=== PATIENT | female | born 1955 | race Caucasian/White ===

== ENCOUNTER 2024-04-27 01:07 | Observation (INO) | payer OTHER ==
[~2024-04-27] VITALS: Ht 157.5 cm; Wt 68.0 kg
[2024-04-27 01:45] VITALS: BP_SYST 137; PULSE 63; RESP 18; TEMP 98.7; O2SAT 96
[2024-04-27 03:20] LABS: BASOPHILS # (AUTO) 0.1 K/uL (0.0-0.2); BASOPHILS % (AUTO) 0.9 % (0.0-2.0); EOSINOPHILS # (AUTO) 0.2 K/uL (0.0-0.4); EOSINOPHILS % (AUTO) 1.8 % (0.0-4.0); HEMOGLOBIN 14.6 g/dL (12.0-16.0); LYMPHOCYTES # (AUTO) 2.8 K/uL (1.0-5.5); LYMPHOCYTES % (AUTO) 29.1 % (20.5-51.5); MEAN CORPUSCULAR HEMOGLOBIN 32 pg (27-31); MEAN CORPUSCULAR HGB CONC 34 % (32-36); MEAN CORPUSCULAR VOLUME 93 fL (79.0-98.0); MONOCYTES # (AUTO) 0.5 K/uL (0.0-1.0); MONOCYTES % (AUTO) 5.4 % (1.7-9.3); NEUTROPHILS % (AUTO) 62.8 % (40.0-70.0); PLATELET COUNT (AUTO) 279 K/uL (130-430); RED BLOOD CELL COUNT(AUTO) 4.64 MIL/uL (4.2-6.2); RED CELL DISTRIBUTION WIDTH 13.5 % (9.0-15.0); WHITE BLOOD COUNT (AUTO) 9.6 K/uL (4.8-10.8)
[2024-04-27 03:46] LABS: ALANINE AMINOTRANSFERASE 24 U/L (12-78); ALBUMIN 3.6 g/dL (3.4-4.8); ANION GAP 3 (5-15); ASPARTATE AMINOTRANSFERASE 21 U/L (10-37); CALCIUM 9.1 mg/dL (8.4-11.0); CARBON DIOXIDE 25 mmol/L (23-29); CHLORIDE 106 mmol/L (98-107); CREATININE 0.89 mg/dL (0.55-1.30); GLUCOSE 113 mg/dL (74-106); POTASSIUM 3.3 mmol/L (3.5-5.1); SODIUM SERUM 134 mmol/L (136-145); TOTAL BILIRUBIN 0.3 mg/dL (0.0-1.0); TOTAL PROTEIN, SERUM 7.4 g/dL (6.4-8.3); UREA NITROGEN, BLOOD 14 mg/dL (8-21)
[2024-04-27 03:47] LABS: GFR AFRICAN AMERICAN 81 mL/min (>90); GFR NON AFRICAN-AMERICAN 67 mL/min (>90)
[2024-04-27 03:49] LABS: BILIRUBIN,URINE NEGATIVE (NEGATIVE); BLOOD, URINE TRACE (NEGATIVE); CLARITY/URINE CLEAR (CLEAR); COLOR,URINE YELLOW (YELLOW); GLUCOSE,URINE NEGATIVE (NEGATIVE); KETONES,URINE NEGATIVE (NEGATIVE); LEUKOCYTE ESTERASE ,URINE NEGATIVE (NEGATIVE); NITRITE, URINE NEGATIVE (NEGATIVE); PH,URINE 6.5 (5.0-8.0); PROTEIN URINE NEGATIVE (NEGATIVE); UROBILINOGEN,URINE 0.2 (0.2-1.0)
[2024-04-27 03:53] LABS: BACTERIA,URINE None Seen /HPF (None Seen); WBC,URINE 0-3 /HPF (0-3)
[2024-04-27] MEDS: NACL 0.9% 1,000 ML IV ONE (03:55)
[2024-04-27 04:18] LABS: BILIRUBIN,DIRECT 0.1 mg/dL (0.0-0.3); THYROID STIMULATING HORMONE 5.05 uIu/mL (0.36-3.74)
[2024-04-27] MEDS ORDERED: ONDANSETRON HCL 4 MG/2 ML VIAL IVP PRN (10:30)
[2024-04-27] MEDS ORDERED: ALBUTEROL SULFATE 0.083% 2.5 MG/3 ML VIAL.NEB INH PRN (10:30)
[2024-04-27] MEDS ORDERED: IPRATROPIUM BROM 0.5 MG/2.5 ML VIAL.NEB (ATROVENT) INH PRN (10:30)
[2024-04-27] MEDS ORDERED: ACETAMINOPHEN 325 MG TABLET PO PRN (10:30)
[2024-04-27] MEDS ORDERED: HYDROcodone/ACETAMIN 5-325 MG TAB (NORCO/ VICODIN) PO PRN (10:30)
[2024-04-27 10:54] VITALS: BP_SYST 143; PULSE 55; O2SAT 97
[2024-04-27] MEDS ORDERED: OMEP-393 PO (11:11)
[2024-04-27] MEDS ORDERED: ESCI-6 PO (11:11)
[2024-04-27] MEDS ORDERED: MIRA25TA PO (11:11)
[2024-04-27] MEDS ORDERED: FEXO60TA PO (11:11)
[2024-04-27] MEDS: NITROGLYCERIN 0.4 MG TAB.SUBL SL ONE (11:32)
[2024-04-27] MEDS: POTASSIUM CHLORIDE 20 MEQ/PKT PACKET PO ONE (11:32)
[2024-04-27 16:27] VITALS: BP_SYST 137; PULSE 57; RESP 18; TEMP 97.6
[2024-04-27 16:45] VITALS: O2SAT 97
[2024-04-27 18:28] VITALS: BP_SYST 135; PULSE 78; RESP 18; TEMP 97.6; O2SAT 98
[2024-04-27 20:00] VITALS: BP_SYST 131; PULSE 54; RESP 18; TEMP 98.1; O2SAT 95
[2024-04-27] MEDS ORDERED: LORazepam 1 MG TABLET PO PRN (21:00)
[2024-04-28] VITALS: BP_SYST 134; PULSE 61; RESP 18; TEMP 97.2; O2SAT 98
[2024-04-28 08:04] VITALS: BP_SYST 133; PULSE 64; RESP 18; TEMP 97.9; O2SAT 95
[2024-04-28] MEDS: ENOXAPARIN SODIUM 40 MG/0.4 ML SYRINGE SUBCUT ONE (09:09)
[2024-04-28 09:32] VITALS: O2SAT 95
[2024-04-28 11:12] VITALS: BP_SYST 119; PULSE 56; RESP 18; TEMP 97.4; O2SAT 96
[2024-04-28] MEDS ORDERED: NON-FORMULARY MEDICATION (Mirabegron (Myrbetriq) 25 MG) PO SCH (12:15)
[2024-04-28] MEDS ORDERED: ESCITALOPRAM OXALATE 10 MG TABLET PO SCH (12:15)
[2024-04-28] MEDS: CITALOPRAM HYDROBROMIDE 20 MG TABLET PO ONE (13:59)
[2024-04-28] MEDS ORDERED: LORATADINE 10 MG TABLET PO PRN (15:30)
[2024-04-28 15:37] VITALS: BP_SYST 128; PULSE 66; RESP 18; TEMP 98.2; O2SAT 96
[2024-04-28 16:13] VITALS: BP_SYST 116; PULSE 59; RESP 16; TEMP 97.8; O2SAT 95
[2024-04-29] MEDS ORDERED: OMEPRAZOLE Non-Formulary 20 MG CAPSULE.DR PO SCH (09:00)
[2024-04-29] MEDS ORDERED: PANTOPRAZOLE SODIUM 40 MG TAB PO SCH (09:00)
[2024-04-29] MEDS ORDERED: CITALOPRAM HYDROBROMIDE 20 MG TABLET PO SCH (09:00)
== END 2024-04-28 16:10 | disposition home or self-care (01) ==
LOC: SED 01:07 → STU 10:23
PROVIDERS: ADMIT Internal Medicine; ATTEND Internal Medicine
DX: R00.2 Palpitations (principal); R07.89 Other chest pain; R51.9 Headache, unspecified; R79.89 Other specified abnormal findings of blood chemistry; E87.6 Hypokalemia; F41.9 Anxiety disorder, unspecified; F32.A Depression, unspecified; Z88.0 Allergy status to penicillin; Z88.5 Allergy status to narcotic agent; Z88.6 Allergy status to analgesic agent; Z88.2 Allergy status to sulfonamides; Z79.899 Other long term (current) drug therapy
CPT/HCPCS: 96360; 80076; 80048; 81000; 81015; 81001; 83037; 83880; 84439; 84443; 85025; 85379; 85730; 84484; 36415; 93005; 71045; 71275; 94070; 99285; 96372; 93306; Q9967; G0378 ×2; J1650